=== PATIENT | female | born 1995 | race Caucasian/White ===

== ENCOUNTER 2017-01-29 14:52 | Emergency (ER) | payer OTHER ==
[2017-01-29 14:57] VITALS: RESP 18
[2017-01-29] MEDS ORDERED: ONDANSETRON 4 MG/2 ML VIAL IVP ONE (15:07)
[2017-01-29] MEDS ORDERED: NS 1,000 ML IV ONE ×2 (15:07)
--- NOTE | 2017-01-29 15:10 | EDPHY ---
H & P Time Seen by Provider: 01/29/17 15:00 HPI/ROS: CHIEF COMPLAINT: Abdominal pain HISTORY OF PRESENT ILLNESS: 21-year-old wound awakened at 9:00 a.m. with right lower quadrant abdominal pain. Continued and was associated with 1 episode of diarrhea and multiple episodes of nausea and vomiting. Worse with oral intake and worse with walking, does not radiate. No urinary symptoms no recent fall injury or trauma, no vaginal bleeding or vaginal discharge. REVIEW OF SYSTEMS: Eye: no change in vision ENT: no sore throat Cardiac: no chest pain or syncope Pulmonary: no cough or SOB Abdomen: HPI Musculoskeletal: no back pain Skin: no rash Neuro: no headache Constitutional: no fever : no urinary symptoms A comprehensive 10 point review of systems is otherwise negative aside from elements mentioned in the history of present illness. PAST MEDICAL HISTORY: Rhinoplasty in October 2015 Social history: No alcohol, nonsmoker General Appearance: Alert and conversant, cooperative. Eyes: No scleral icterus. ENT, Mouth: Normal mucous membranes. Respiratory: Normal respiratory effort, breath sounds equal, lungs are clear to auscultation. Cardiovascular: Regular rate and rhythm. Gastrointestinal: Right lower quadrant tenderness without rebound or guarding. Neurological: Alert and oriented x3. Normally conversant. Face symmetric, normal movement and sensation in all extremities. Skin: Warm and dry, no rashes. Musculoskeletal: No peripheral edema and no joint swelling. Psychiatric: Not agitated. Emergency Department course/MDM: Zofran 4 mg IV, 2 L IV normal saline for vomiting. Ultrasound to evaluate appendix versus right ovary as source of symptoms. 1605: Reexamined, still has right lower quadrant pain, declined pain medication. CT scanning to evaluate for appendicitis discussed and consented at this time. 1710: Results discussed, appendicitis precautions discussed, plan for 15 mg IV Toradol and discharge. Supportive care. Warned of the unlikely but not completely excluded possibility of early appendicitis and she will return if she gets worse or is not better in 12 hours. Smoking Status: Never smoked Constitutional: Initial Vital Signs Temperature (C) 36.7 C 01/29/17 14:54 Heart Rate 98 01/29/17 14:54 Respiratory Rate 18 01/29/17 14:54 Blood Pressure 117/91 H 01/29/17 14:54 O2 Sat (%) 97 01/29/17 14:54 O2 Delivery Mode Room Air Allergies/Adverse Reactions: No Known Allergies Allergy (Unverified 01/29/17 14:54) Home Medications: Medication Instructions Recorded Obcp 01/29/17 Medical Decision Making - Diagnostics Imaging: Ultrasound reviewed with Lencho at 4:04 p.m. shows normal pelvis, appendix not visualized. CT reviewed with Dr. Person at 4:43 p.m. shows normal appendix well visualized. No other reason for abdominal pain Differential Diagnosis: Differential considered including but not limited to ectopic, ovarian torsion, ovarian cyst, PID, UTI, appendicitis. - Data Points Laboratory Results: Laboratory Results 01/29/17 15:10 01/29/17 15:10 01/29/17 01/29/17 01/29/17 17:00 15:10 15:10 WBC RBC Hgb Hct MCV MCH MCHC RDW Plt Count MPV Neut % (Auto) Lymph % (Auto) Curry % (Auto) Eos % (Auto) Baso % (Auto) Nucleat RBC Rel Count Absolute Neuts (auto) Absolute Lymphs (auto) Absolute Monos (auto) Absolute Eos (auto) Absolute Basos (auto) Absolute Nucleated RBC Immature Gran % Immature Gran # Sodium 137 mEq/L mEq/L (134-144) Potassium 4.1 mEq/L mEq/L (3.5-5.2) Chloride 103 mEq/L mEq/L (97-110) Carbon Dioxide 21 mEq/l L mEq/l (22-31) Anion Gap 13 mEq/L mEq/L (8-16) BUN 15 mg/dL mg/dL (7-23) Creatinine 0.6 mg/dL mg/dL (0.6-1.0) Estimated GFR > 60 Glucose 102 mg/dL H mg/dL (70-100) Calcium 9.3 mg/dL mg/dL (8.5-10.4) Beta HCG, Qual NEGATIVE Urine RBC 1-3 /hpf /hpf (0-3) Urine WBC 1-3 /hpf /hpf (0-3) Ur Epithelial Cells TRACE /lpf /lpf (NONE-1+) Urine Bacteria 1+ /hpf H /hpf (NONE SEEN) Urine Mucus TRACE /lpf /lpf (NONE-1+) 01/29/17 15:10 WBC 12.22 10^3/uL H 10^3/uL (3.80-9.50) RBC 4.77 10^6/uL 10^6/uL (4.18-5.33) Hgb 14.7 g/dL g/dL (12.6-16.3) Hct 43.2 % % (38.0-47.0) MCV 90.6 fL fL (81.5-99.8) MCH 30.8 pg pg (27.9-34.1) MCHC 34.0 g/dL g/dL (32.4-36.7) RDW 13.9 % % (11.5-15.2) Plt Count 365 10^3/uL 10^3/uL (150-400) MPV 9.4 fL fL (8.7-11.7) Neut % (Auto) 91.5 % H % (39.3-74.2) Lymph % (Auto) 5.0 % L % (15.0-45.0) Curry % (Auto) 2.9 % L % (4.5-13.0) Eos % (Auto) 0.2 % L % (0.6-7.6) Baso % (Auto) 0.2 % L % (0.3-1.7) Nucleat RBC Rel Count 0.0 % % (0.0-0.2) Absolute Neuts (auto) 11.17 10^3/uL H 10^3/uL (1.70-6.50) Absolute Lymphs (auto) 0.61 10^3/uL L 10^3/uL (1.00-3.00) Absolute Monos (auto) 0.35 10^3/uL 10^3/uL (0.30-0.80) Absolute Eos (auto) 0.03 10^3/uL 10^3/uL (0.03-0.40) Absolute Basos (auto) 0.03 10^3/uL 10^3/uL (0.02-0.10) Absolute Nucleated RBC 0.00 10^3/uL 10^3/uL (0-0.01) Immature Gran % 0.2 % % (0.0-1.1) Immature Gran # 0.03 10^3/uL 10^3/uL (0.00-0.10) Sodium Potassium Chloride Carbon Dioxide Anion Gap BUN Creatinine Estimated GFR Glucose Calcium Beta HCG, Qual Urine RBC Urine WBC Ur Epithelial Cells Urine Bacteria Urine Mucus Medications Given: Discontinued Medications Sodium Chloride (Ns) 1,000 mls @ 0 mls/hr IV ONCE ONE PRN Reason: Wide Open Stop: 01/29/17 15:08 Last Admin: 01/29/17 15:22 Dose: 1,000 mls Sodium Chloride (Ns) 1,000 mls @ 0 mls/hr IV ONCE ONE PRN Reason: Wide Open Stop: 01/29/17 15:08 Last Admin: 01/29/17 16:00 Dose: 1,000 mls Ketorolac Tromethamine (Toradol) 15 mg IVP EDNOW ONE Stop: 01/29/17 17:11 Last Admin: 01/29/17 17:20 Dose: 15 mg Ondansetron HCl (Zofran) 4 mg IVP EDNOW ONE Stop: 01/29/17 15:08 Last Admin: 01/29/17 17:47 Dose: Not Given Departure - Departure Disposition: Home, Routine, Self-Care Clinical Impression: Abdominal pain Qualifiers: Abdominal location: right lower quadrant Qualified Code(s): R10.31 - Right lower quadrant pain Condition: Good Instructions: Acute Abdominal Pain (ED) Additional Instructions: You need to return to the emergency department immediately if you develop worsening or severe pain, fever, vomiting or you are not completely better in 8- 12 hours. Referrals: South Child MD [Medical Doctor] - As per Instructions
[2017-01-29 15:29] LABS: % IMMATURE GRANULYOCYTES 0.2 % (0.0-1.1); ABSOLUTE IMMATURE GRANULOCYTES 0.03 10^3/uL (0.00-0.10); ADD DIFF? NO; ADD MORPH? NO; ADD SCAN? NO; ATYPICAL LYMPHOCYTE FLAG 0 (0-99); FRAGMENT RBC FLAG 0 (0-99); HEMATOCRIT 43.2 % (38.0-47.0); HEMOGLOBIN 14.7 g/dL (12.6-16.3); LEFT SHIFT FLG 0 (0-99); LIPEMIA HEMOLYSIS FLAG 90 (0-99); MEAN CELL HEMOGLOBIN 30.8 pg (27.9-34.1); MEAN CELL VOLUME 90.6 fL (81.5-99.8); MEAN PLATELET VOLUME 9.4 fL (8.7-11.7); PLATELET CLUMPS FLAG 10 (0-99); PLATELET COUNT 365 10^3/uL (150-400); RED BLOOD CELL COUNT 4.77 10^6/uL (4.18-5.33); RED CELL DISTRIBUTION WIDTH 13.9 % (11.5-15.2)
[2017-01-29 15:43] LABS: ANION GAP 13 mEq/L (8-16); CALCIUM 9.3 mg/dL (8.5-10.4); CARBON DIOXIDE 21 mEq/l (22-31); CHLORIDE 103 mEq/L (97-110); CREATININE 0.6 mg/dL (0.6-1.0); GLOMERULAR FILTRATION RATE > 60; GLUCOSE 102 mg/dL (70-100); POTASSIUM 4.1 mEq/L (3.5-5.2); SODIUM 137 mEq/L (134-144)
[2017-01-29] MEDS ORDERED: IOPAMIDOL (ISOVUE-300) 100 ML BTL IV ONE (16:12)
[2017-01-29] MEDS ORDERED: KETOROLAC 30 MG/1 ML SDV IVP ONE (17:10)
[2017-01-29 17:29] LABS: BACTERIA 1+ /hpf (NONE SEEN); MUCUS TRACE /lpf (NONE-1+)
[2017-01-29 17:56] VITALS: BP 111/74; PULSE 72; TEMP 98.4; O2SAT 100
== END 2017-01-29 17:55 | disposition home or self-care (01) ==
DX: R10.31 Right lower quadrant pain (principal); R11.2 Nausea with vomiting, unspecified; R19.7 Diarrhea, unspecified
CPT/HCPCS: 96374; J1885; Q9967

== ENCOUNTER 2017-02-01 11:19 | Emergency (ER) | payer OTHER ==
[2017-02-01 11:31] VITALS: RESP 18
--- NOTE | 2017-02-01 14:59 | EDPHY ---
H & P Stated Complaint: work up sat for generalized abd pain/all negative/not better Time Seen by Provider: 02/01/17 14:57 HPI/ROS: HPI: 21-year-old female presents to emergency department with chief concern generalized abdominal discomfort, bloating, and churning sensation. This has been ongoing x3 days. 3 days ago developed nausea, vomiting, diarrhea that resolved by the following evening. Reports ongoing acid reflux intermittently since that time. Was evaluated in the emergency department that day and had an unremarkable abdominal CT, and pelvic/renal/abdominal ultrasound. CT did show increased fluid in the small bowel consistent with gastroenteritis. Patient was told to return to emergency department should her symptoms not entirely resolve. As she has ongoing bloating, and churning abdominal discomfort she returns for re-evaluation. She is tolerating p.o.. She denies fever, chills, URI symptoms, shortness of breath, chest pain, nausea, vomiting, diarrhea, urinary symptoms, back or flank pain. She has no previous significant GI history including irritable bowel or IBD. She has a [employer] student. LMP 4 days ago. ROS:10 point review of systems is negative other than as stated in HPI Source: Patient - Personal History LMP (Females 10-55): 1-7 Days Ago Current Tetanus/Diphtheria Vaccine: Yes - Medical/Surgical History Hx Asthma: No Hx Chronic Respiratory Disease: No Hx Diabetes: No Hx Cardiac Disease: No Hx Renal Disease: No Hx Cirrhosis: No Hx Alcoholism: No Hx HIV/AIDS: No Hx Splenectomy or Spleen Trauma: No Other PMH: denies - Family History Significant Family History: No pertinent family hx - Social History Smoking Status: Never smoked Alcohol Use: Rarely Drug Use: None Additional Social History: [employer] student - Physical Exam Exam: Vital signs stable, reviewed by me General: Awake, alert, calm, cooperative. No acute distress. Head: Normalocephalic. Atraumatic. EENT: PERRLA. EOMI. No pallor or injection. Anicteric. No nystagmus. No injection. Neck: Supple, nontender. No lymphadenopathy. Full range of motion. No meningismus. Respiratory: Breathing unlabored. Breath sounds equal bilaterally and clear to auscultation. No adventitious sounds. CV: Chest nontender, atraumatic. Heart rate regular. No murmur, distal pulses 2+ bilaterally. Brisk cap refill all extremities. GI: Abdomen soft, mild generalized tenderness. Bowel sounds mildly hyperactive and positive x4 quadrants. : No suprapubic tenderness. No CVA or flank tenderness. Neuro: Alert. Oriented x 3. Speech clear. Nonfocal cranial nerves throughout. Sensation intact all extremities. Skin: Skin warm, dry, intact. Skin turgor normal. Extremities: Full range of motion in all 4 extremities. Constitutional: Initial Vital Signs Temperature (C) 36.7 C 02/01/17 11:29 Heart Rate 91 02/01/17 11:29 Respiratory Rate 18 02/01/17 11:29 Blood Pressure 102/75 02/01/17 11:29 O2 Sat (%) 97 02/01/17 11:29 O2 Delivery Mode Room Air Allergies/Adverse Reactions: No Known Allergies Allergy (Verified 02/01/17 11:28) Home Medications: Medication Instructions Recorded Obcp 01/29/17 Hyoscyamine Sulfate [Levsin] 0.125 mg PO Q8 PRN #4 tablet 02/01/17 Simethicone [GAS-X] 80 mg PO Q8 PRN #4 tab.chew 02/01/17 Medical Decision Making ED Course/Re-evaluation: 21-year-old female returns to emergency department with chief concern abdominal discomfort that she describes as bloating, churning discomfort associated with acid reflux that has been ongoing since an episode of nausea, vomiting, diarrhea that lasted for 2 days and resolved 2 days ago. She has had no further vomiting or diarrhea. She has had no fevers. She has no urinary symptoms. She returns to the emergency department because she was told to return here should her symptoms not entirely resolved. On 01/29, pelvic/renal/ abdominal ultrasound were performed as well as CT abdomen. These results have been reviewed. There was increased fluid in the small bowel consistent with gastroenteritis as well as trace free fluid in the pelvis. Her pain is minimal. She is afebrile. Will try Levsin, simethicone, and Pepcid. I do not feel that repeating labs or imaging is warranted at this time as she is very stable and in minimal discomfort. She has a nonsurgical abdomen. Will rule out . 1610: After 0.25 mg of Levsin, 80 mg simethicone, 20 mg p.o. Pepcid, pain has entirely resolved. Urine dip in the ED is negative for evidence of infection, negative HCG. Patient will discharge. Vitals are stable. She has been counseled regarding abdominal discomfort and need for follow-up. I have counseled her to follow up with [facility] as well as with [facility] the [facility] should her symptoms persist. Verbalizes understanding of plan and agrees to do so. She has been counseled to return to ED should symptoms worsen. Differential Diagnosis: Differential diagnosis includes but is not limited to the gastroenteritis, flatus, irritable bowel, food sensitivity, dyspepsia - Data Points Medications Given: Discontinued Medications Famotidine (Pepcid) 20 mg PO EDNOW ONE Stop: 02/01/17 15:15 Last Admin: 02/01/17 15:29 Dose: 20 mg Hyoscyamine Sulfate (Levsin, Hyomax-Sl) 0.25 mg PO EDNOW ONE Stop: 02/01/17 15:14 Last Admin: 02/01/17 16:08 Dose: 0.25 mg Simethicone (Mylicon) 80 mg PO EDNOW ONE Stop: 02/01/17 15:14 Last Admin: 02/01/17 15:29 Dose: 80 mg Departure - Departure Disposition: Home, Routine, Self-Care Clinical Impression: Dyspepsia, Abdominal bloating Condition: Good Instructions: Indigestion (ED) Additional Instructions: Plan: Follow up at [facility] tomorrow for recheck without fail--When you call to schedule appointment, please let the office know you are an "ER follow up" appointment" Follow up with [facility] dr. Perez should your symptoms persist beyond this week--When you call to schedule appointment, please let the office know you are an "ER follow up" appointment" Try a stool softener such as Colace [id number] daily for ongoing constipation Try [id number] Prevacid once daily as an antacid for ongoing acid reflux May use Levsin 0.125 mg every 8 hours for the next 2 days Simethicone 80 mg every 8 hours for the next 2 days as needed Drink plenty of fluids [place] diet, avoid dairy, caffeine, Fried foods for the next week Referrals: PATRICIA FOY [Other] - As per Instructions Jhon Perez MD [Medical Doctor] - As per Instructions [facility]. [Clinic] - As per Instructions Prescriptions: Hyoscyamine Sulfate [Levsin] 0.125 mg PO Q8 PRN #4 tablet PRN Reason: abdominal discomfort Simethicone [GAS-X] 80 mg PO Q8 PRN #4 tab.chew PRN Reason: bloating/pain
[2017-02-01] MEDS ORDERED: HYOSCYAMINE SULFATE 0.125 MG TAB PO ONE (15:13)
[2017-02-01] MEDS ORDERED: SIMETHICONE 80 MG TAB CHEW PO ONE (15:13)
[2017-02-01] MEDS ORDERED: FAMOTIDINE 20 MG TAB PO ONE (15:14)
[2017-02-01 16:48] VITALS: BP 114/76; PULSE 71; TEMP 98.8; O2SAT 96
== END 2017-02-01 16:47 | disposition home or self-care (01) ==
DX: R14.0 Abdominal distension (gaseous) (principal); R10.13 Epigastric pain